=== PATIENT | female | born 1965 | race Caucasian/White ===

== ENCOUNTER 2021-11-24 13:34 | Outpatient (CLI) | payer BC, SELFPAY | END 2021-11-24 23:59 | disposition short-term general hospital (02) | LOC: LABSPEC 13:35 | PROVIDERS: Referring Provider Physician Assistant; Visit Provider Physician Assistant | DX: U07.1 COVID-19 (principal) | CPT/HCPCS: 87635; U0003; U0005 ==

== ENCOUNTER 2021-12-27 09:56 | Emergency (ER) | payer BC, SELFPAY ==
[2021-12-27 09:58] VITALS: BP 139/89; PULSE 81; RESP 17; TEMP 36.1; O2SAT 100; BMI 25.2
--- NOTE | 2021-12-27 10:13 | CT_ITS ---
STUDY: CT ABDOMEN AND PELVIS WITHOUT CONTRAST REASON FOR EXAM: Female, 56 years old. Right flank pain and groin pain. RADIATION DOSAGE (If Supplied By Facility): CTDIvol = ( 8.27 ) mGy, DLP = ( 408.62 ) mGycm TECHNIQUE: Transaxial images were obtained from the dome of the diaphragm to the symphysis pubis without oral contrast, and without intravenous contrast. Sagittal and coronal images were reconstructed. Individualized dose optimization techniques were used for this CT. COMPARISON: None. FINDINGS: The visualized lung bases are unremarkable. The visualized portions of the heart are within normal limits. Normal liver. Normal gallbladder and extrahepatic biliary system. Normal spleen. Normal pancreas. Normal bilateral adrenal glands. Normal right kidney. Normal left kidney. Normal visualized stomach. Normal small intestine. There are scattered colonic diverticula consistent with diverticulosis. The appendix is visualized and appears normal. There is scattered atherosclerotic calcification of the abdominal aorta, without a demonstrated aneurysm. Normal inferior vena cava. There is borderline retroperitoneal lymphadenopathy with enlarged nodes no greater than 10mm in the short axis diameter. Normal urinary bladder. There is absence of the uterus consistent with a prior hysterectomy. Normal abdominal wall. Normal osseous structures. CT/Abdomen/Pelvis without Cont IMPRESSION: No evidence of ureteral obstruction. Electronically Signed: Champ Islas MD at 10:58 EST ,
--- NOTE | 2021-12-27 10:13 | EX.ED.DYSGE1 ---
HPI History of Present Illness Chief Complaint: Flank Pain Informant: patient Onset/Context/Timing Onset: Today Timing: Waxes and wanes Current Severity: Mild Maximum Severity: Severe Narrative Narrative: Patient presents secondary to right flank pain. She states she was woken up with this morning at 3 AM with pain in the right flank region. She had some pain along the groin line. She had chills along with nausea and vomiting. Pain seemed to subside at this time. No history of kidney stones. Only prior abdominal surgery is hysterectomy. PFSH PFSH Medical History no medical history no medical history Allergy/AdvReac Type Severity Reaction Status Date / Time No Known Allergies Allergy Verified 12/27/21 09:57 Family History unable to obtain Surgical History History of hysterectomy Surgical History no surgical history Social History Smoking Status: Never smoker ROS ROS ED Constitutional Constitutional ED: Denies chills or fever(s) Eyes Eyes: Denies change in vision Cardiovascular Cardiovascular: Denies chest pain Respiratory/Chest Respiratory/Chest: Denies cough or dyspnea Gastrointestinal Gastrointestinal: Reports abdominal pain, nausea and vomiting; Denies diarrhea Genitourinary Genitourinary ED: Denies dysuria or hematuria Musculoskeletal Musculoskeletal: Reports back pain Integumentary Denies rash Neurologic Neurologic: Denies headache(s) Allergic/Immunologic Allergic/Immunologic ED: Denies urticaria EXAM Physical Exam Const Vital Signs: 12/27/21 09:58 12/27/21 10:08 Temperature 97.0 F L Temperature Source Temporal Pulse Rate 81 Respiratory Rate 17 Respiratory Effort Normal Non-Labored Respiratory Pattern Normal Blood Pressure 139/89 H Blood Pressure Mean 105 Pulse Ox 100 Oxygen Delivery Method Room Air Positive well nourished and well developed General Appearance ED: well developed HEENT Reports moist mucous membranes Eyes PERRL and EOMs intact bilaterally Neck supple Chest Wall inspection of chest normal and palpation of chest normal Resp normal respiratory effort and clear to auscultation bilaterally Cardio regular rate and regular rhythm GI normal to inspection, nondistended, normoactive bowel sounds and non-tender Palpation: soft Back/Spine no CVA tenderness Extremity normal to inspection Neuro oriented x3 and no sensory deficits noted Sensorium / Orientation: alert Motor Exam: strength 5/5 throughout Psych mental status grossly normal Skin no rashes or lesions noted MDM MDM MDM Narrative Medical decision making narrative: Patient declined anything for pain here. Lab work, urinalysis, CT flank obtained. Lab Data Attestation: I reviewed the patient's lab results. Labs: Laboratory Results - last 24 hr 12/27/21 12/27/21 12/27/21 10:15 10:15 10:15 WBC 9.0 RBC 4.47 Hgb 14.0 Hct 40.9 MCV 91.5 MCH 31.3 MCHC 34.2 RDW Std Deviation 39.2 RDW Coeff of Reggie 11.7 Plt Count 219 MPV 10.5 Immature Gran % (Auto) 0.200 Neut % (Auto) 82.8 H Lymph % (Auto) 12.6 L [place] % (Auto) 4.0 Eos % (Auto) 0.0 Baso % (Auto) 0.4 Absolute Neuts (auto) 7.4 Absolute Lymphs (auto) 1.13 Nucleated RBC % 0 Sodium 139 Potassium 3.8 Chloride 106 Carbon Dioxide 28.0 Anion Gap 5 BUN 17 Creatinine 0.83 Estim Creat Clear Calc 73.60 Est GFR (MDRD) Af Amer 91 Est GFR (MDRD) Non-Af 75 BUN/Creatinine Ratio 20.5 H Glucose 129 H Calcium 9.0 Urine Color Yellow Urine Clarity Clear Urine pH 8.0 Ur Specific Holliday 1.015 Urine Protein 15 H Urine Glucose (UA) Normal Urine Ketones Negative Urine Occult Blood 250 H Urine Nitrite Negative Urine Bilirubin Negative Urine Urobilinogen Normal Ur Leukocyte Esterase Negative Urine RBC 0-5 SEEN Urine WBC 0 SEEN Ur Squamous Epith Cells 0 SEEN Urine Bacteria 0 SEEN Urine Mucus 0 SEEN Radiography Diagnostic Testing: Clinical Impression(s) from Imaging Studies Abdomen/Pelvis CT 12/27/21 10:13 IMPRESSION: No evidence of ureteral obstruction. Electronically Signed: Champ Islas MD at 10:58 EST , Treatment and Re-Evaluation Comments:: Repeat evaluation patient resting comfortably. She has had no further pain on the emergency room. Lab work unremarkable. Urinalysis does reveal some blood. CT flank negative. My suspicion is that she had a small stone that she passed. Patient is comfortable with supportive care and follow-up as needed. Discharge Plan Triage Chief Complaint: Flank Pain ED Provider: Ashley Manley Dx/Rx/DC Orders Clinical Impression: Kidney stone Instructions: ED Kidney Stone, Passed Primary Care Provider: Care Physician,No Primary Referrals: Veronica Rodriguez DO [STAFF PHYSICIAN] - As Needed Care Physician,No Primary [Primary Care Provider] - Disposition Disposition: Home, Self Care
[2021-12-27 10:21] LABS: Bacteria 0 SEEN /hpf (None Seen); Mucous, Urine 0 SEEN /hpf (<or=2+); Squamous Epithelial Cells - UA 0 SEEN /hpf (5-10); White Blood Cells 0 SEEN /hpf (0-5)
[2021-12-27 10:24] LABS: Color, Urine Yellow (Yellow); Glucose, Dipstick Normal (Normal); Ketone-Dipstick Negative (Negative); Leukocyte Esterase-Dipstick Negative /ul (Negative); Nitrite-Dipstick Negative (Negative); Occult Blood-Urine 250 /ul (Negative); Protein-Dipstick 15 mg/dl (Negative); Specific Gravity, Urine 1.015 (1.002-1.030); Urine Bilirubin Dipstick Negative (Negative); Urine Clarity Clear (Clear); Urine Urobilinogen Normal (Normal)
[2021-12-27 10:38] LABS: Red Blood Cells-Urine 0-5 SEEN /hpf (0-5)
[2021-12-27 10:42] LABS: Absolute Lymphocyte Count 1.13 X10^3/uL (0.83-4.51); Absolute Neutrophil Count 7.4 X10^3/uL (2.0-7.7); Anion Gap 5 (5-15); BUN 17 mg/dL (7-18); BUN/Creat Ratio 20.5 RATIO (10-20); Basophil# 0.04 X10^3/uL; Basophil% 0.4 % (0-1); Chloride 106 mmol/L (98-107); Creatinine, Serum 0.83 mg/dL (0.55-1.02); EST Glomerular Filtration Rate 75 mL/min (>60); Est Glom Filt Rate - Afr Amer 91 mL/min (>60); Glucose 129 mg/dL (74-106); Hematocrit 40.9 % (37-47); Lymphocyte # 1.13 X10^3/ul (0.83-4.51); Lymphocyte % 12.6 % (19-41); Mean Corp Hgb Conc 34.2 g/dL (32-36); Mean Corpuscular Hgb 31.3 pg (27.0-32.0); Mean Corpuscular Volume 91.5 fL (81-99); Mean Platelet Vol. 10.5 fl (6.2-12.0); Monocyte# 0.36 X10^3/uL; NRBC Flagged by Analyzer 0 % (0-5); Neutrophil # 7.41 X10^3/uL (2.7-7.7); Neutrophil % 82.8 % (47-70); Platelet Count 219 K/mm3 (150-450); Potassium 3.8 mmol/L (3.5-5.1); RBC Distribution Width CV 11.7 % (11.6-14.6); RBC Distribution Width SD 39.2 fl (35.1-43.9); Red Blood Count 4.47 M/mm3 (4.2-5.4); Sodium Level 139 mmol/L (136-145)
[2021-12-27 11:18] VITALS: BP 134/74; PULSE 62; RESP 15; O2SAT 98
== END 2021-12-27 11:19 | disposition home or self-care (01) ==
PROVIDERS: Emergency Provider Emergency Medicine; Visit Provider Emergency Medicine
DX: N20.0 Calculus of kidney (principal)
CPT/HCPCS: 74176; 80048; 81001; 85025; 99283; A4216

== ENCOUNTER 2022-04-21 06:03 | Day surgery (SDC) | payer BC, SELFPAY ==
[2022-04-21] VITALS (7 sets, daily range): BP systolic 113–154; BP diastolic 57–82; PULSE 67–91; RESP 16; TEMP 36.4–36.8; O2SAT 100; BMI 24.8
[2022-04-21] MEDS: Lactated Ringers 1,000 ML 15 ML IV (06:50)
--- NOTE | 2022-04-21 07:00 | COLBX_PTH ---
PATIENT: HASEEB SCHILLING LOC: EN U#:[id number] AGE/SX: 57/F ROOM: RE04/21/[address]: Dr. Fransico Mckenzie DO : 1965 BED: DIS: 04/21/2022 SPEC #: [id number] RECD: 04/21/22 10:46 STATUS: ESTEFANIA PIERCE #: [id number] CHON: 04/21/22 07:[address]: Fransico Mckenzie DEPT: SURGICAL PATHOLOGY RECD BY: Mary Peralta ENTERED: 04/21/22 12:53 SP TYPE: COLON BX OTHR DR: JUSTICE Garcia Tissues: A - Ascending colon B - Cecum, NOS C - Ascending colon Procedures: Surgery Specimen Level IV HEADER OPERATION: Colonoscopy ? open access (MAC) PRE-OP DIAGNOSIS: Screening TISSUE SUBMITTED: A ? Ascending polyp, B ? Cecum polyp, C ? Ascending polyp (x3) MICROSCOPIC DIAGNOSIS A. Ascending colon polyp, biopsy: Fragments of hyperplastic polyp with cautery artifacts. B. Cecum polyp, biopsy: Tubular adenoma. C. Ascending colon polyp (x3), biopsy: Fragments of tubular adenoma. Fragments of hyperplastic polyp. Fragments of fecal material. MARIELLA:jac 04/22/2022 MICROSCOPIC DESCRIPTION Slides are reviewed. GROSS DESCRIPTION A - Received in fixative is one container labeled with the patient's name and designated ascending polyp. The specimen consists of multiple irregular fragments of light francois soft tissue that in aggregate measure 1 x 0.4 x 0.1 cm. The specimen is totally submitted in one cassette. B - Received in fixative is one container labeled with the patient's name and designated cecum polyp. The specimen consists of a francois-pink polyp measuring 0.7 x 0.6 x 0.4 cm. The specimen is totally submitted in one cassette. C - Received in fixative is one container labeled with the patient's name and designated ascending polyp (x3). The specimen consists of multiple irregular fragments of francois-pink polyp that in aggregate measure 1.5 x 0.5 x 0.3 cm. Multiple fragments of fecal material are also noted. The specimen is totally submitted in one cassette. / MARIELLA:jac 04/21/2022 TC:1 CPT: 88329 x3
--- NOTE | 2022-04-21 07:03 | HP.PCM_ITS ---
[facility] - General General Date of Admission: 04/21/22 Date of Service: 04/21/22 Chief Complaint: Screening colonoscopy HPI Narrative HASEEB SCHILLING, is a 57 F who presents today for screening colonoscopy. She is not have any abdominal pain. She not have any nausea. She does not have any change in weight. She is not having any bloating, diarrhea, constipation or nausea. Overall she is in very good health. [facility] Medical History (Updated 04/18/22 @ 14:28 by Dianna Coello) Anxiety Arthritis Cancer Heartburn Hematoma Leg cramps Migraine headache Non-smoker Wears contact lenses Home Medications cholecalciferol (vitamin D3) 100 mcg (4,000 unit) capsule 100 mcg PO DAILY 04/18/22 [History Last Taken Unknown] Allergy/AdvReac Type Severity Reaction Status Date / Time No Known Allergies Allergy Verified 04/18/22 14:22 Surgical History (Updated 04/18/22 @ 14:28 by Dianna Coello) History of excision of lesion History of hysterectomy Social History Smoking Status: Never smoker ROS Review of Systems ROS Unobtainable: other Constitutional Constitutional: Denies fatigue, fever(s), poor appetite, weight gain or weight loss ENT HEENT: Denies mouth lesions Cardiovascular Cardiovascular: Denies abdominal bloating, abdominal edema or abdominal pain Respiratory/Chest Respiratory/Chest: Denies change in mental status, change in phlegm color, chest congestion or chest tightness Gastrointestinal Gastrointestinal: Denies belching, bloating, change in bowel habits, change in stool character, chewing difficulty, coffee ground emesis, constipation, cramping, diarrhea, dyspepsia, dysphagia, early satiety, excessive flatus, fecal incontinence, heartburn, hematemesis, hematochezia, hemorrhoids, loose stools, melena, nausea, odynophagia, rectal bleeding, tenesmus, vomiting or weight changes Genitourinary Genitourinary: Denies abdominal discomfort, burning urination or itching Musculoskeletal Musculoskeletal: Reports as per HPI; Denies muscle weakness or myalgias Integumentary Integumentary: Denies jaundice Neurologic Neurologic: Denies lack of coordination or weakness Psychiatric Psychiatric: Denies confusion, depression, memory loss, mood swings, paranoia or suicidal ideation Endocrine Endocrinology: Denies systems reviewed and no addt'l complaints, except as documented Hematologic/Lymphatic Hematologic/Lymphatic: Denies anemia, easy bleeding, easy bruising or lymphadenopathy Allergic/Immunologic Allergic/Immunologic: Denies systems reviewed and no addt'l complaints, except as documented Vital Signs Vital Signs Vital Signs: 04/21/22 06:42 04/21/22 06:42 Temperature 97.5 F L Temperature Source Temporal Pulse Rate 91 Respiratory Rate 16 Respiratory Pattern Normal Blood Pressure 154/82 H Blood Pressure Mean 106 Blood Pressure Source Monitor Blood Pressure Position Sitting Blood Pressure Location Left Arm Pulse Ox 100 Oxygen Delivery Method Room Air Weight Weight: 158 lb 11.725 oz Body Mass Index (BMI) 24.8 Physical Exam Const alert General Appearance: cooperative Orientation / Consciousness: oriented to person HEENT hearing grossly normal bilaterally Head and Scalp: normal to inspection Face and Sinus: face symmetric Nose: external nose normal Mouth: oral and palatal mucosa normal Eyes conjunctivae normal General Eye: normal appearance of both eyes Neck full ROM General: normal visual inspection Lymph Lymphatic: no lymphadenopathy noted Chest inspection of chest normal and palpation of chest normal Chest: symmetrical chest wall rise Resp normal respiratory effort Effort and Inspection: able to speak in complete sentences Cardio regular rate GI non-distended Percussion: normal to percussion Rectal Exam: deferred Neuro Speech: speech normal Gait (Neuro): normal gait Assessment & Plan Assessment/Plan (1) Encounter for screening for malignant neoplasm of colon: PLAN: 57-year-old undergoes screening colonoscopy. She was explained alternatives, risk, benefits including not withstanding bleeding, infection, sepsis, perforation, need for emergent surgery . She have an ASA of 1.
--- NOTE | 2022-04-21 07:50 | OP.CCLET_ITS ---
08/09/2022 Joe Garcia Re : Colonoscopy procedure for Dari Mossr Chaka This procedure was performed on April. My impressions and recommendations are as follows: Impressions : - Melanosis in the colon. - Six 1 to 2 mm polyps in the ascending colon and in the cecum, removed with a hot snare. Resected and retrieved. Recommendations : - Repeat colonoscopy in 3 years for surveillance of multiple polyps. - Continue present medications. My findings are described in the full procedure note, which is enclosed. If I can be of further assistance, please feel free to contact me at . Sincerely, Fransico Mckenzie, 04/21/2022 7:50:19 AM This report has been signed electronically.
--- NOTE | 2022-04-21 07:50 | OP.COLON_ITS ---
Patient Name: Dari Riddle Procedure Date: 04/21/2022 7:04 AM Date of : 1965 Age: 57 Procedure: Colonoscopy Indications: Screening for colorectal malignant neoplasm Providers: Fransico Mckenzie DO Referring MD: Fransico Mckenzie DO Medicines: Monitored Anesthesia Care Patient Profile: This is a 57 year old female. Refer to note in patient chart for documentation of history and physical. Last Colonoscopy: none. The patient's first colonoscopy is today. Complications: No immediate complications. Procedure: Pre-Anesthesia Assessment: - Prior to the procedure, a History and Physical was performed, and patient medications and allergies were reviewed. The risks and benefits of the procedure and the sedation options and risks were discussed with the patient. All questions were answered and informed consent was obtained. Patient identification and proposed procedure were verified by the physician in the pre-procedure area. Mental Status Examination: alert and oriented. Airway Examination: normal oropharyngeal airway and neck mobility. Respiratory Examination: clear to auscultation. CV Examination: normal. Prophylactic Antibiotics: The patient does not require prophylactic antibiotics. Prior Anticoagulants: The patient has taken no previous anticoagulant or antiplatelet agents. ASA Grade Assessment: II - A patient with mild systemic disease. After reviewing the risks and benefits, the patient was deemed in satisfactory condition to undergo the procedure. The anesthesia plan was to use moderate sedation / analgesia (conscious sedation). Immediately prior to administration of medications, the patient was re-assessed for adequacy to receive sedatives. The heart rate, respiratory rate, oxygen saturations, blood pressure, adequacy of pulmonary ventilation, and response to care were monitored throughout the procedure. The physical status of the patient was re-assessed after the procedure. After I obtained informed consent, the scope was passed under direct vision. Throughout the procedure, the patient's blood pressure, pulse, and oxygen saturations were monitored continuously. The Colonoscope was introduced through the anus and advanced to the cecum, identified by the appendiceal orifice, IC valve and transillumination. The colonoscopy was performed without difficulty. The patient tolerated the procedure well. The quality of the bowel preparation was good. Scope In: 7:15:38 AM Scope Withdrawal Time 0 hours 22 minutes 32 seconds Scope Out: 7:42:38 AM Total Procedure Duration Time 0 hours 27 minutes 0 seconds Findings: The perianal and digital rectal examinations were normal. A diffuse area of moderate melanosis was found in the entire colon. Six sessile polyps were found in the ascending colon and cecum. The polyps were 1 to 2 mm in size. These polyps were removed with a hot snare. Resection and retrieval were complete. Verification of patient identification for the specimen was done. Estimated blood loss was minimal. To prevent bleeding post-intervention, one hemostatic clip was successfully placed. There was no bleeding at the end of the procedure. Impression: - Melanosis in the colon. - Six 1 to 2 mm polyps in the ascending colon and in the cecum, removed with a hot snare. Resected and retrieved. Recommendation: - Repeat colonoscopy in 3 years for surveillance of multiple polyps. - Continue present medications. Procedure Code(s): --- Professional --- 19614, Colonoscopy, flexible; with removal of tumor(s), polyp(s), or other lesion(s) by snare technique CPT copyright 2017 [employer]. All rights reserved. The codes documented in this report are preliminary and upon medical biller/coder review may be revised to meet current compliance requirements. Fransico Mckenzie DO 04/21/2022 7:50:19 AM This report has been signed electronically. Number of Addenda: 1 Note Initiated On: 04/21/2022 7:04 AM Addendum Number: 1 Addendum Date: 08/09/2022 6:13:15 AM MAC was used as sedation for this procedure. Fransico Mckenzie DO 08/09/2022 6:13:20 AM This report has been signed electronically.
== END 2022-04-21 08:25 | disposition home or self-care (01) ==
LOC: EN 06:03 → AC 06:04
PROVIDERS: Referring Provider Internal Medicine Gastroenterology; Visit Provider Internal Medicine Gastroenterology
PROC: 0DJD8ZZ Inspection of Lower Intestinal Tract, Via Natural or Artificial Opening Endoscopic (ICD-10-PCS; CPT 45378; principal; 2022-04-21 06:55)
DX: Z12.11 Encounter for screening for malignant neoplasm of colon (principal); D12.0 Benign neoplasm of cecum; D12.2 Benign neoplasm of ascending colon; K63.89 Other specified diseases of intestine
CPT/HCPCS: 45385; 88305; J2405